=== PATIENT | female | born 1990 | race Caucasian/White ===

== ENCOUNTER 2019-04-12 15:57 | Emergency (ER) | payer BC ==
[~2019-04-12] VITALS: Ht 162.6 cm; Wt 55.2 kg
[2019-04-12 16:00] VITALS: Ht 162.6 cm; Wt 55.2 kg
--- NOTE | 2019-04-12 16:55 | ERD ---
ER Documentation Chief Complaint Chief Complaint possible exposure to bodily fluids x 2-3 weeks ago HPI 28-year-old female with no reported past medical surgical history presents status post body fluid exposure. 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 reports that on either March 20, if she was providing care to patient who had a PICC line placed and felt she was exposed body fluids while flushing patient's line. She presents for post exposure laboratory work. Patient she is providing care with patient reports with MRSA in the blood positive, and also hep C positive. She otherwise reports good health and is without complaint at time of evaluation. ROS All systems reviewed and are negative except as per history of present illness. FmHx Family History: No diabetes, No coronary disease, No other Physical Exam Vitals Vital Signs Date Temp Pulse Resp B/P (MAP) Pulse Ox O2 O2 Flow FiO2 Time Delivery Rate 04/12/19 99.1 90 20 110/70 98 16:00 (83) Physical Exam I have reviewed the triage vital signs. Const: Well nourished, well developed, appears stated age Eyes: PERRL, no conjunctival injection HENT: NCAT, Neck supple without meningismus CV: RRR, Warm, well-perfused extremities RESP: CTAB, Unlabored respiratory effort GI: soft, non-tender, non-distended, no masses MSK: No gross deformities appreciated Skin: Warm, dry. No rashes Neuro: grossly non focal Psych: Appropriate mood and affect. Procedures/MDM 28-year-old healthy female presents w post occupational exposure. The patients occupational exposure is meaningfully significant as it involved mucosal splash to the eyes, mouth, or nose by the patients blood or a potentially infectious body fluid. All appropriate blood work sent and patient advised to follow-up with [facility] per protocols. DISPOSITION PLAN: We discussed follow up with the patient's primary care doctor within 24 to 48 hours. Patient counseled regarding my diagnostic impression and care plan. Prior to discharge all questions answered. Pt agrees with treatment plan and understands strict return precautions. Precautionary instructions provided including instructions to return to the ER if not improving or for any worsening or changing symptoms or concerns. Disclaimer: Inadvertent spelling and grammatical errors are likely due to EHR/dictation software use and do not reflect on the overall quality of patient care. Also, please note that the electronic time recorded on this note does not necessarily reflect the actual time of the patient encounter. Departure Diagnosis: Primary Impression: Exposure to blood or body fluid Condition: Stable Patient Instructions: Body Fluid Exposure, Health Care Worker Additional Instructions: Call your primary care doctor TOMORROW for an appointment during the next 2-3 days.See the doctor sooner or return here if your condition worsens before your appointment time. Patient to follow-up with [facility] as instructed. JOCELINE CROWELL PA-C Apr 12, 2019 16:54
== END 2019-04-12 17:15 | disposition home or self-care (01) ==
LOC: FTE 15:57
DX: Z77.21 Contact with and (suspected) exposure to potentially hazardous body fluids (principal)
CPT/HCPCS: 80076; 85025; 86703; 86706; 86803; 87340; 99283